=== PATIENT | male | born 1970 | race Two or more races ===

== ENCOUNTER 2016-07-15 23:10 | Emergency (ER) | payer OTHER, MEDICAID ==
--- NOTE | 2016-07-16 09:37 | RAD ---
07/16/2016 9:30 AM CHEST - 2 VIEWS History: Cough for the last 3-4 days. Yellow productive mucus. Pain from coughing. Comparison: 03/09/2016 Findings: Two views of the chest are obtained. The lungs are clear with out effusion or pneumothorax. The cardiomediastinal silhouette is unremarkable.. The osseous structures are intact.. IMPRESSION: No acute intrathoracic process.
== END 2016-07-16 01:52 | disposition home or self-care (01) ==
LOC: ED 23:10
DX: J20.9 Acute bronchitis, unspecified (principal); I50.9 Heart failure, unspecified; I10 Essential (primary) hypertension; F17.210 Nicotine dependence, cigarettes, uncomplicated; Z79.899 Other long term (current) drug therapy; Z79.82 Long term (current) use of aspirin; Z88.8 Allergy status to other drugs, medicaments and biological substances